=== PATIENT | female | born 1950 | race Caucasian/White ===

== ENCOUNTER 2017-03-27 09:45 | Inpatient (IN) ==
[2017-03-27] MEDS ORDERED: ATIVAN IV ONE ×2 (09:56→11:55)
[2017-03-27] MEDS ORDERED: ZOFRAN IV ONE (09:56)
[2017-03-27] MEDS ORDERED: NS 1,000 ML IV ONE (09:56)
[2017-03-27 10:44] LABS: BASO% 0.1 % (0.0-0.8); EOS# 0.09 X1000 (0.0-0.7); EOS% 0.6 % (0.0-10.0); HEMOGLOBIN 15.2 g/dL (12.0-16.0); IMM GRAN# 0.04 X1000 (0.0-0.04); IMM GRAN% 0.3 % (0.0-0.5); LYMPH# 1.39 X1000 (1.2-3.4); MANUAL DIFF NEEDED? NO; MCHC 33.8 g/dL (33-37); MCV 91.8 FL (81-99); MONO# 0.52 X1000 (0.11-0.59); MONO% 3.4 % (1.7-9.3); MPV 10.6 FL (7.4-10.4); NEUT% 86.6 % (42.2-75.2); PLT 308 X1000 (130-400)
[2017-03-27 11:04] LABS: URINE CULTURE NEEDED? NO; URINE MICRO REVIEW NEEDED? NO; URINE SOURCE CLEAN CATCH
[2017-03-27 11:15] LABS: BILIRUBIN URINE NEGATIVE (NEGATIVE); BLOOD URINE NEGATIVE (NEGATIVE); COLOR YELLOW; GLUCOSE URINE NEGATIVE (NEGATIVE); LEUKOCYTES URINE NEGATIVE (NEGATIVE); NITRITE URINE NEGATIVE (NEGATIVE); PROTEIN URINE NEGATIVE (NEGATIVE); SP GRAVITY URINE 1.017; TURBIDITY URINE CLEAR (CLEAR); UROBILINOGEN URINE NORMAL (NORMAL)
[2017-03-27 11:16] LABS: UR EPITHELIAL CELLS <10 /HPF (<10); URINE BACTERIA NEGATIVE /HPF; URINE RBC <10 /HPF (<10); URINE WBC <10 /HPF (<10)
[2017-03-27] MEDS ORDERED: SOLU-MEDROL IV ONE (11:43)
[2017-03-27] MEDS ORDERED: DUONEB (A & A) INH ONE (11:43)
[2017-03-27 11:51] LABS: ALLEN TEST YES; BE -0.4 mmoll (-3.0-3.0); BLOOD TYPE ARTERIAL; DRAW SITE R RADIAL; METHB 0.1 % (0.0-1.5); O2(CT) 18.9 mL/dL (15.0-23.0); PCO2(98.6) 33 mmHg (35-45); PO2(98.6) 67 mmHg (60-100); SAMPLE BLOOD; SAO2 93.5 % (95.0-100.0); THB 14.7 g/dL (11.5-17.4); pH(98.6) 7.45 (7.35-7.45)
[2017-03-27] MEDS ORDERED: ATIVAN ONE (11:52)
[2017-03-27 11:53] LABS: MODALITY ROOM AIR
[2017-03-27 12:51] LABS: UR AMPHETAMINES QUAL NONE DETECTED (NONE DETECT); UR BARBITUATES QUAL NONE DETECTED (NONE DETECT); UR BENZODIAZEPIN QUAL PRESUMPTIVE POSITIVE (NONE DETECT); UR CANNABINOIDS QUAL PRESUMPTIVE POSITIVE (NONE DETECT); UR COCAINE QUAL NONE DETECTED (NONE DETECT); UR METHADONE QUAL NONE DETECTED (NONE DETECT); UR OPIATES QUAL NONE DETECTED (NONE DETECT); UR OXYCODONE QUAL NONE DETECTED (NONE DETECT); UR PCP QUAL NONE DETECTED (NONE DETECT)
[2017-03-27 12:52] LABS: AGAP 21; ALBUMIN 4.1 g/dL (3.5-5.0); ALKALINE PHOSPHATASE 120 U/L (32-104); AMYLASE 43 U/L (20-200); BUN 20 mg/dL (8-22); CALCIUM 9.6 mg/dL (8.8-10.2); CHLORIDE 106 mmol/L (98-107); COSMO 291; GOT 24 U/L (10-30); GPT 17 U/L (10-36); LIPASE 31 U/L (13-60); POTASSIUM 5.2 mmol/L (3.5-5.1); SODIUM 144 mmol/L (136-145); TCO2 17 mmol/L (25-35); TOTAL PROTEIN 6.5 g/dL (6.3-8.3)
[2017-03-27] MEDS ORDERED: SODIUM CHLORIDE 0.9% INJ ONE (14:12)
[2017-03-27] MEDS ORDERED: PHENERGAN IV ONE (14:12)
[2017-03-27] MEDS ORDERED: REGLAN IV ONE (14:13)
[2017-03-27 16:00] LABS: POTASSIUM 4.1 mmol/L (3.5-5.1)
[2017-03-27] MEDS ORDERED: ZOFRAN ONE (16:21)
[2017-03-27] MEDS ORDERED: TYLENOL PO PRN (16:41)
[2017-03-27] MEDS ORDERED: ZOFRAN IV PRN (16:41)
[2017-03-27] MEDS ORDERED: PHENERGAN PO PRN (16:41)
[2017-03-27] MEDS: NS + KCL 40 MEQ 1,000 ML IV SCH (20:00)
[2017-03-27] MEDS ORDERED: TORADOL IV ONE (20:50)
[2017-03-27] MEDS ORDERED: KLONOPIN PO SCH (21:00)
[2017-03-27] MEDS ORDERED: SEROQUEL PO SCH (21:00)
[2017-03-27] MEDS ORDERED: LIPITOR PO SCH (21:00)
[2017-03-27] MEDS ORDERED: MELATONIN PO SCH (21:00)
[2017-03-27] MEDS ORDERED: NEURONTIN PO SCH (21:00)
[2017-03-28] MEDS: NS + KCL 40 MEQ 1,000 ML IV SCH (05:34)
[2017-03-28 05:45] LABS: URINE CULTURE NEEDED? NO; URINE MICRO REVIEW NEEDED? NO; URINE SOURCE CLEAN CATCH
[2017-03-28 05:49] LABS: BILIRUBIN URINE NEGATIVE (NEGATIVE); BLOOD URINE NEGATIVE (NEGATIVE); COLOR YELLOW; GLUCOSE URINE NEGATIVE (NEGATIVE); LEUKOCYTES URINE NEGATIVE (NEGATIVE); NITRITE URINE NEGATIVE (NEGATIVE); PH URINE 6.5; PROTEIN URINE TRACE mg/dL (NEGATIVE); SP GRAVITY URINE 1.032; TURBIDITY URINE CLEAR (CLEAR); UROBILINOGEN URINE NORMAL (NORMAL)
[2017-03-28 05:50] LABS: UR EPITHELIAL CELLS <10 /HPF (<10); URINE BACTERIA NEGATIVE /HPF; URINE WBC <10 /HPF (<10)
[2017-03-28] MEDS ORDERED: SYNTHROID PO SCH (07:00)
[2017-03-28 07:12] LABS: MANUAL DIFF NEEDED? NO
[2017-03-28 07:15] LABS: BASO% 0.1 % (0.0-0.8); EOS# 0.01 X1000 (0.0-0.7); EOS% 0.1 % (0.0-10.0); HEMATOCRIT 43.7 % (37.0-47.0); HEMOGLOBIN 14.6 g/dL (12.0-16.0); IMM GRAN# 0.03 X1000 (0.0-0.04); IMM GRAN% 0.2 % (0.0-0.5); LYMPH# 1.48 X1000 (1.2-3.4); LYMPH% 10.6 % (20.5-51.1); MCH 31.1 PG (27-31); MCHC 33.4 g/dL (33-37); MONO# 0.96 X1000 (0.11-0.59); MONO% 6.9 % (1.7-9.3); MPV 10.7 FL (7.4-10.4); NEUT% 82.1 % (42.2-75.2); PLT 327 X1000 (130-400)
[2017-03-28 07:37] LABS: ALBUMIN 3.8 g/dL (3.5-5.0); CALCIUM 8.7 mg/dL (8.8-10.2); MAGNESIUM 1.7 mg/dL (1.5-2.7); POTASSIUM 4.2 mmol/L (3.5-5.1); TOTAL BILIRUBIN 0.34 mg/dL (0.20-1.00)
[2017-03-28 07:44] VITALS: BP 125/65
[2017-03-28 07:56] LABS: FREE T4 0.72 ng/dL (0.93-1.70)
[2017-03-28] MEDS ORDERED: CYMBALTA PO SCH (09:00)
== END 2017-03-28 11:04 | disposition home or self-care (01) ==
LOC: ED 09:45 → 3N 16:46 → SUATTDRO 16:46 → 3N 20:15
PROVIDERS: ATTEND Internal Medicine